=== PATIENT | male | born 1975 | race Caucasian/White ===

== ENCOUNTER 2023-04-09 13:14 | Emergency (ER) | payer OTHER, SELFPAY ==
[2023-04-09 13:24] VITALS: BP 147/99
--- NOTE | 2023-04-09 14:31 | ED.GENMED ---
History of Present Illness
General
Chief Complaint: Cold/Flu/URI Symptoms
Time Seen by Provider: 04/09/23 14:06
Travel History
Have you had any contact with someone who has COVID-19?: No
Do you have any symptoms of coronavirus? Fever > 100 degrees, chills, cough, shortness of breath, sore throat, loss of taste or smell, muscle aches, or headache?: No
History of Present Illness
History of Present Illness:
47-year-old male with history of tobacco use presents the emergency department for evaluation of general malaise and 'brain fog' ongoing for the past several days. He notes he was diagnosed with the flu approximately 1 week ago and treated with a
full course of Tamiflu. He states he was feeling improved however worsened again over the past 1 to 2 days. Was not able to complete work today due to symptoms. Denies any chest pain or shortness of breath currently
Past History
Past History
ED Past Medical History: None
ED Past Surgical History: None
Social History
Tobacco: Smoker
Review of Systems
Review of Systems
Allergies reviewed?: Yes
Phy Exam
Physical Exam
Physical Exam:
GEN: Well appearing, NAD, WDWN
HEENT: Oral mucosa moist, no scleral icterus
Cardiac: Regular rate and rhythm, no murmurs or rubs
Lung: No respiratory distress, no tachypnea, lungs clear to auscultation bilaterally
MSK: No gross deformity or injuries
Skin: Good color, no pallor or jaundice, no rashes
Neuro: AO x3, moves all extremities freely
Psych: Calm, cooperative
Course
Vital Signs
Initial and Last Documented VS:
Initial Vital Signs
Temp Pulse Resp BP Pulse Ox
97.6 F 92 16 147/99 98
04/09/23 13:24 04/09/23 13:24 04/09/23 13:24 04/09/23 13:24 04/09/23 13:24
Last Documented Vital Signs
Temp Pulse Resp BP Pulse Ox
97.6 F 90 16 138/84 98
04/09/23 13:24 04/09/23 14:45 04/09/23 14:45 04/09/23 14:45 04/09/23 14:45
MDM/Problems Addressed
MDM/Problems Addressed:
Patient's physical exam is benign. Vital signs are normal. He is reassured this is likely a continued viral syndrome, encouraged rest and hydration, no indication for imaging
*Critical Care Note
Total Time (30-74mins, 75-104mins- exclusive of procedures): Not Applicable
ED Attending Note
-
Portions of this chart may have been created with voice recognition software.� Occasional wrong word or��sound alike� substitutions may have occurred due to the inherent limitations of voice recognition software.
Discharge Plan
Departure
Patient Disposition: Home (Routine Discharge)
Date of Disposition: 04/09/23
Time of Disposition: 14:31
Patient with high blood pressure during this ER visit?: Yes
Discharge Problem:
Post viral syndrome
Instructions: Viral Syndrome (DC)
Prescriptions:
New
benzonatate 200 mg capsule
200 mg PO TID PRN (Reason: Cough) Qty: 20 0RF
No Action
fluticasone propionate [Flonase Allergy Relief] 50 mcg/actuation [place],Suspension
1 spray INTRANASAL DAILY PRN (Reason: seasonal allergies)
Medical [place]
.ASDIRECTED
Zyrtec
.ASDIRECTED
naproxen 500 mg tablet
500 mg PO BID Qty: 20 0RF
cephalexin 500 mg capsule
500 mg PO BID 7 Days Qty: 14 0RF
tamsulosin [Flomax] 0.4 mg capsule
0.4 mg PO DAILY Qty: 7 0RF
Interventions
Interventions:
ED- Fall Risk Assessment Last Done: 04/09/23 14:45
*ED COVID-19 Vaccine History Last Done: 04/09/23 13:24
*Nursing Disposition Last Done: 04/09/23 14:45
ED- Pulmonary Assessment Last Done: 04/09/23 14:45
Discharge Date and Time
Discharge Date/Time: 04/09/23 14:54
[2023-04-09 14:45] VITALS: BP 138/84
== END 2023-04-09 14:54 | disposition home or self-care (01) ==
LOC: EMR 13:14
PROVIDERS: EMERGENCY PHYSICIAN Student in an Organized Health Care Education/Training Program; FAMILY PHYSICIAN Nurse Practitioner Family
DX: B34.9 Viral infection, unspecified (principal); F17.200 Nicotine dependence, unspecified, uncomplicated
CPT/HCPCS: 99282

== ENCOUNTER 2023-11-24 20:15 | Emergency (ER) | payer SELFPAY ==
[2023-11-24 20:17] VITALS: BP 190/120
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
[2023-11-24 21:21] VITALS: BP 127/92
== END 2023-11-24 21:35 | disposition home or self-care (01) ==
LOC: EMR 20:15
PROVIDERS: EMERGENCY PHYSICIAN Emergency Medicine; FAMILY PHYSICIAN Physician Assistant
DX: S63.502A Unspecified sprain of left wrist, initial encounter (principal); W19.XXXA Unspecified fall, initial encounter; R03.0 Elevated blood-pressure reading, without diagnosis of hypertension; F17.200 Nicotine dependence, unspecified, uncomplicated
CPT/HCPCS: 99283; 73110

== ENCOUNTER 2023-12-16 16:21 | Emergency (ER) | payer SELFPAY ==
[2023-12-16] VITALS (8 sets, daily range): BP systolic 123–147; BP diastolic 79–99; BMI 25.5
--- NOTE | 2023-12-16 16:43 | ED.GENMED ---
History of Present Illness
<Luis F Dawkins PA-C - Last Filed: 12/18/23 14:22>
General
Chief Complaint: Crisis Evaluation
Time Seen by Provider: 12/16/23 16:27
History of Present Illness
History of Present Illness:
48-year-old male with history of depression presents to the emergency department for evaluation of suicidal ideation use and alcohol use. He states he has frequent depressive thoughts during this time of the year and self medicates with alcohol.
He states he has a plan to choke himself an extension cord. He states that at this time he does not feel the urge to act on those thoughts and contracts for safety in the emergency department. He is requesting to sign himself in for psychiatric
treatment as well as alcohol withdrawal management. His last alcoholic beverage was just prior to arrival. Denies any additional substance use issues. No visual or auditory hallucinations
Past History
<Luis F Dawkins PA-C - Last Filed: 12/18/23 14:22>
Past History
ED Past Medical History: None
ED Past Surgical History: None
Social History
Tobacco: Smoker
Review of Systems
<Luis F Dawkins PA-C - Last Filed: 12/18/23 14:22>
Review of Systems
Allergies reviewed?: Yes
All Other Systems: ROS reviewed and negative except as documented in HPI and ROS
Phy Exam
<Luis F Dawkins PA-C - Last Filed: 12/18/23 14:22>
Physical Exam
Physical Exam:
GEN: Well appearing, NAD, WDWN
HEENT: Oral mucosa moist, no scleral icterus
Cardiac: Regular rate and rhythm, no murmurs
Lung: No respiratory distress, no tachypnea
MSK: No gross deformity or injuries
Skin: Good color, no pallor or jaundice, no rashes
Neuro: AO x3, moves all extremities freely, no tremors
Psych: Calm, cooperative
Course
<Luis F Dawkins PA-C - Last Filed: 12/18/23 14:22>
Orders/Labs/Results
Orders:
Orders
12/16/23 16:40
Electrocardiogram (*1) Urgent
Reason for Study: QTc Monitoring
Crisis Consult Urgent
Reason for Consult: depression, SI, ETOH abuse
EKG- Treatment ONCE
12/16/23 16:41
ED Special Safety Observation ONCE
Observation level: Intermittent Observation
12/16/23 16:46
Alcohol Urgent
Complete Blood Count/With Diff Urgent
Comprehensive Metabolic Panel Urgent
Manual Differential Urgent
12/16/23 20:46
Urinalysis Reflex To Culture Urgent
Date Specimen was Collected: 12/16/23
Time Specimen was Collected: 20:43
Urine Drug Abuse Screen Urgent
Date Specimen was Collected: 12/16/23
Time Specimen was Collected: 20:43
Urine Microscopic Reflex Cult Urgent
12/16/23 21:00
0.9% Sodium Chloride 1000 ml [Nss] 1,000 ml Mvi, Adult [Multivitamin] 10 ml Thiamine Injection 100 mg IV 250 mls/hr
12/17/23 02:16
Alcohol Urgent
12/17/23 03:32
Lorazepam [Ativan] 1 mg .ROUTE .STK-MED ONE
12/17/23 03:35
Lorazepam [Ativan] 1 mg PO NOW STA
12/17/23 07:32
Lorazepam [Ativan] 1 mg PO NOW STA
12/17/23 08:00
Nicotine [Nicoderm Transdermal] 21 mg TRANSDERM DAILY
Abnormal Lab Results
12/16/23 12/16/23
16:46 20:46
MCV 94.2 H fL
(80.0-94.0)
MCH 34.3 H pg
(27.0-31.0)
RDW 15.9 H %
(11.5-14.5)
Carbon Dioxide 19 L mmol/L
(22-30)
BUN 8 L mg/dl
(9-20)
Creatinine 0.6 L mg/dL
(0.7-1.3)
AST 112 H U/L
(17-59)
ALT 100 H U/L
(0-50)
Albumin 5.5 H g/dl
(3.5-5.0)
Urine Ketones 3+ A
(Negative)
Ur Occult Blood Reflex 3+ A
(Negative)
Urine Bilirubin 1+ A
(Negative)
Urine Urobilinogen 3+ A
(Neg - 1+)
Leukocyte Esterase Rfl Trace A
(Negative)
Urine RBC 16-20 A /HPF
(0-2)
Urine Bacteria (Reflex) Few A
(Negative)
Urine Albumin (Reflex) 1+ A
(Neg - Trace)
U Marijuana (THC) Screen Positive H
(Negative)
12/16/23 16:46
12/16/23 16:46
Vital Signs
Initial and Last Documented VS:
Initial Vital Signs
Temp Pulse Resp BP Pulse Ox
98 F 92 16 146/99 97
12/16/23 16:26 12/16/23 16:26 12/16/23 16:26 12/16/23 16:26 12/16/23 16:26
Last Documented Vital Signs
Temp Pulse Resp BP Pulse Ox
99.1 F 99 16 140/94 99
12/17/23 03:15 12/17/23 04:15 12/17/23 04:15 12/17/23 04:15 12/17/23 04:15
<Darin King DO - Last Filed: 12/17/23 00:48>
Orders/Labs/Results
Orders:
Orders
12/16/23 16:40
Electrocardiogram (*1) Urgent
Reason for Study: QTc Monitoring
Crisis Consult Urgent
Reason for Consult: depression, SI, ETOH abuse
EKG- Treatment ONCE
12/16/23 16:41
ED Special Safety Observation ONCE
Observation level: Intermittent Observation
12/16/23 16:46
Alcohol Urgent
Complete Blood Count/With Diff Urgent
Comprehensive Metabolic Panel Urgent
Manual Differential Urgent
12/16/23 20:46
Urinalysis Reflex To Culture Urgent
Date Specimen was Collected: 12/16/23
Time Specimen was Collected: 20:43
Urine Drug Abuse Screen Urgent
Date Specimen was Collected: 12/16/23
Time Specimen was Collected: 20:43
Urine Microscopic Reflex Cult Urgent
12/16/23 21:00
0.9% Sodium Chloride 1000 ml [Nss] 1,000 ml Mvi, Adult [Multivitamin] 10 ml Thiamine Injection 100 mg IV 250 mls/hr
12/17/23 02:16
Alcohol Urgent
12/17/23 03:32
Lorazepam [Ativan] 1 mg .ROUTE .STK-MED ONE
12/17/23 03:35
Lorazepam [Ativan] 1 mg PO NOW STA
12/17/23 07:32
Lorazepam [Ativan] 1 mg PO NOW STA
12/17/23 08:00
Nicotine [Nicoderm Transdermal] 21 mg TRANSDERM DAILY
Abnormal Lab Results
12/16/23 12/16/23
16:46 20:46
MCV 94.2 H fL
(80.0-94.0)
MCH 34.3 H pg
(27.0-31.0)
RDW 15.9 H %
(11.5-14.5)
Carbon Dioxide 19 L mmol/L
(22-30)
BUN 8 L mg/dl
(9-20)
Creatinine 0.6 L mg/dL
(0.7-1.3)
AST 112 H U/L
(17-59)
ALT 100 H U/L
(0-50)
Albumin 5.5 H g/dl
(3.5-5.0)
Urine Ketones 3+ A
(Negative)
Ur Occult Blood Reflex 3+ A
(Negative)
Urine Bilirubin 1+ A
(Negative)
Urine Urobilinogen 3+ A
(Neg - 1+)
Leukocyte Esterase Rfl Trace A
(Negative)
Urine RBC 16-20 A /HPF
(0-2)
Urine Bacteria (Reflex) Few A
(Negative)
Urine Albumin (Reflex) 1+ A
(Neg - Trace)
U Marijuana (THC) Screen Positive H
(Negative)
12/16/23 16:46
12/16/23 16:46
Vital Signs
Initial and Last Documented VS:
Initial Vital Signs
Temp Pulse Resp BP Pulse Ox
98 F 92 16 146/99 97
12/16/23 16:26 12/16/23 16:26 12/16/23 16:26 12/16/23 16:26 12/16/23 16:26
Last Documented Vital Signs
Temp Pulse Resp BP Pulse Ox
99.1 F 99 16 140/94 99
12/17/23 03:15 12/17/23 04:15 12/17/23 04:15 12/17/23 04:15 12/17/23 04:15
<Luis F Dawkins PA-C - Last Filed: 12/18/23 14:22>
MDM/Problems Addressed
MDM/Problems Addressed:
Patient will remain in the emergency department for medical management and observation of potential withdrawal although he is markedly intoxicated at this time despite appearing clinically sober. Crisis will evaluate the patient upon sobriety to
determine most appropriate placement. At this time I do not feel the patient requires one-to-one observation as he contracts for safety in the emergency department. Will sign out to shift coordinator ED provider for further observation pending crisis
placement
<Luis F Dawkins PA-C - Last Filed: 12/18/23 14:22>
*Critical Care Note
Total Time (30-74mins, 75-104mins- exclusive of procedures): Not Applicable
<Darin King DO - Last Filed: 12/17/23 00:48>
Update Note
Update Note:
Patient reassessed again and continues to not have any suicidal thoughts or plan. Await B cares
ED Attending Note
<Luis F Dawkins PA-C - Last Filed: 12/18/23 14:22>
-
Portions of this chart may have been created with voice recognition software.� Occasional wrong word or��sound alike� substitutions may have occurred due to the inherent limitations of voice recognition software.
<DO Saturnino Clemons Last Filed: 12/17/23 00:48>
ED Attending Note
Patient seen and examined by attending physician: Yes
I performed the substantive portion of visit, reviewed & personally made and approve the management plan that is documented in note by myself or NABIL.: Yes
ED Attending Note:
48-year-old male presents with suicidal thoughts and chronic alcohol abuse. Patient assessed by me and awake and alert. Alcohol level noted. Now being seen by crisis. Continue close monitoring
Discharge Plan
Departure
Patient Disposition: Psych Facility
Date of Disposition: 12/16/23
Time of Disposition: 20:53
Discharge Problem:
Depression with suicidal ideation, Alcohol abuse
Prescriptions:
No Action
fluticasone propionate [Flonase Allergy Relief] 50 mcg/actuation [place],Suspension
1 spray INTRANASAL DAILY PRN (Reason: seasonal allergies)
Medical [place]
.ASDIRECTED
Zyrtec
.ASDIRECTED
naproxen 500 mg tablet
500 mg PO BID Qty: 20 0RF
cephalexin 500 mg capsule
500 mg PO BID 7 Days Qty: 14 0RF
tamsulosin [Flomax] 0.4 mg capsule
0.4 mg PO DAILY Qty: 7 0RF
benzonatate 200 mg capsule
200 mg PO TID PRN (Reason: Cough) Qty: 20 0RF
Referrals:
Sandoval Hickey MD [Family Provider] -
Interventions
Interventions:
*Risk Screen - Suicide Last Done: 12/16/23 16:23
*General Assessment Last Done: 12/16/23 16:47
*Neglect/Abuse Screening Last Done: 12/16/23 16:47
ED- Fall Risk Assessment Last Done: 12/16/23 17:29
*ED COVID-19 Vaccine History Last Done: 12/16/23 16:47
*Nursing Disposition Last Done: 12/17/23 10:26
ED-Psychological Assessment Last Done: 12/17/23 07:43
Discharge Date and Time
Discharge Date/Time: 12/17/23 10:20
Print Language: YEMENI
[2023-12-16 17:06] LABS: Hematocrit 46.7 % (39.0-52.0); Mean Corp Hgb Conc. 36.4 g/dL (33.0-37.0); Mean Corpuscular Hgb 34.3 pg (27.0-31.0); Mean Corpuscular Volume 94.2 fL (80.0-94.0); Mean Platelet Volume 9.2 fL (7.4-10.4); Platelet Count 193 10^3/uL (130-400); Red Blood Cell Count 4.96 10^6/uL (4.70-6.10); Red Cell Dist. Width 15.9 % (11.5-14.5); White Blood Cell Count 4.8 10^3/uL (4.8-10.8)
[2023-12-16 17:12] LABS: ALT (SGPT) 100 U/L (0-50); AST (SGOT) 112 U/L (17-59); Albumin 5.5 g/dl (3.5-5.0); Alkaline Phosphatase 86 U/L (38-126); Blood Urea Nitrogen 8 mg/dl (9-20); Calcium 9.9 mg/dl (8.4-10.2); Carbon Dioxide 19 mmol/L (22-30); Chloride 98 mmol/L (98-107); Estimated Creatinine Clearance > 125 ml/min; Glucose 99 mg/dl (70-99); Sodium 140 mmol/L (135-145); eGFR > 60.00
[2023-12-16 17:20] LABS: Alcohol 336 mg/dl
[2023-12-16 18:05] LABS: Atypical Lymphocytes 4 %; Lymphocytes 28 % (20-51); Monocytes 9 % (2-9); Platelets Checked Yes; Segmented Neutrophils 59 % (42-75)
[2023-12-16 18:06] LABS: Anisocytosis 2+; Macrocytosis 2+; Normal RBC Morphology No; Total Cells Counted 100
[2023-12-16] MEDS: MULTIVITAMIN 1011 MG IV (20:40)
[2023-12-16] MEDS: MULTIVITAMIN 1011 ML IV (20:40)
[2023-12-16 21:05] LABS: Amphetamines Negative (Negative); Barbiturates Negative (Negative); Benzodiazepines Negative (Negative); Buprenorphine Negative (Negative); Cocaine Negative (Negative); Marijuana Positive (Negative); Methadone Negative (Negative); Methamphetamines Negative (Negative); Opiates Negative (Negative); Phencyclidine Negative (Negative); Tricyclic Antidepressants Negative (Negative)
[2023-12-16 21:06] LABS: Urine Albumin 1+ (Neg - Trace); Urine Bilirubin 1+ (Negative); Urine Character Clear (Clear); Urine Color Yellow; Urine Glucose Negative (Negative); Urine Ketone 3+ (Negative); Urine Leukocyte Trace (Negative); Urine Nitrite Negative (Negative); Urine Occult Blood 3+ (Negative); Urine Specific Gravity 1.025 (<1.030); Urine Urobilinogen 3+ (Neg - 1+)
[2023-12-16 21:33] LABS: Urine Mucus Many
[2023-12-16 21:36] LABS: Urine Bacteria Few (Negative); Urine Red Blood Cell 16-20 /HPF (0-2)
[2023-12-17] VITALS: BP 142/91
[2023-12-17 02:12] VITALS: BP 158/94
[2023-12-17 02:59] LABS: Alcohol 116 mg/dl
[2023-12-17 03:00] VITALS: BP 166/100
[2023-12-17 03:15] VITALS: BP 147/95
[2023-12-17] MEDS: ATIVAN 1 MG PO ×2 (03:36→07:44)
[2023-12-17 04:15] VITALS: BP 140/94
[2023-12-17] MEDS: NICODERM TRANSDERMAL 21 MG TRANSDERM (07:53)
--- NOTE | 2023-12-17 10:26 | EDRN ---
Report given to [facility].
== END 2023-12-17 10:20 ==
LOC: EMR 16:21
PROVIDERS: Physician Assistant; EMERGENCY PHYSICIAN Emergency Medicine; FAMILY PHYSICIAN Family Medicine
DX: F32.A Depression, unspecified (principal); R45.851 Suicidal ideations; F10.10 Alcohol abuse, uncomplicated; F17.200 Nicotine dependence, unspecified, uncomplicated
CPT/HCPCS: 99283; 80053; 80306; 81003; 81015; 82077; 85025; 93005

== ENCOUNTER 2024-01-09 01:01 | Emergency (ER) | payer SELFPAY ==
[2024-01-09 01:04] VITALS: BP 113/89
[2024-01-09 01:26] VITALS: BP 123/87
--- NOTE | 2024-01-09 01:58 | ED.GENMED ---
History of Present Illness
<Alba Zuniga MD, Resident - Last Filed: 01/09/24 03:13>
General
Chief Complaint: Nose Bleed
Source: patient
Exam Limitations: none
Time Seen by Provider: 01/09/24 01:40
Nursing documentation reviewed up to this point in time: agreed with
Travel History
Have you traveled to any high risk areas for coronavirus over the past 14 days?: No
Have you had any contact with someone who has COVID-19?: No
Do you have any symptoms of coronavirus? Fever > 100 degrees, chills, cough, shortness of breath, sore throat, loss of taste or smell, muscle aches, or headache?: No
History of Present Illness
History of Present Illness:
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 He had similar allergies this year that exacerbated his dryness of the nostril
and patient started having intermittent nasal bleeds from Thursday. He decided to go to his primary care physician as of Thursday but his bleeding completely stopped on Thursday so patient did not go due to his insurance difficulties. He started
bleeding through his nose again on Thursday-Thursday, Thursday, yesterday his bleeding was intermittent, however over the last 2 hours his bleeding through his left nostril is continuous. Patient stated that he does not use any inhalational
recreational drugs, he smokes medical marijuana and he smokes 1 and half packs of cigarettes a day. His last inhalational cocaine was more than 20 years ago. He denies having any relapses in the last 6 years other than this episode. His nasal
bleed was accompanied by dizziness and lightheadedness in the evening today.
He denies having fevers, chills, high blood pressure, shortness of breath on exertion, orthopnea, PND.
If applicable-neuro sx onset
Onset of symptoms known: No
Time pt last seen normal is known: No
Past History
<Alba Zuniga MD, Resident - Last Filed: 01/09/24 03:13>
Past History
ED Past Medical History: None
ED Past Surgical History: None
Social History
Tobacco: Smoker
Alcohol: Occasional
Drug: None
Personal: Single
Living: alone
Employment: Employed
Family History
Family History: Other
Review of Systems
<Alba Zuniga MD, Resident - Last Filed: 01/09/24 03:13>
Review of Systems
Allergies reviewed?: Yes
All Other Systems: ROS reviewed and negative except as documented in HPI and ROS
EENT: Reports other (Nasal bleed.)
Phy Exam
<Alba Zuniga MD, Resident - Last Filed: 01/09/24 03:13>
General Physical Exam
General Presentation: well appearing and no apparent distress
General Skin: warm
General Habitus: normal
General Mental: alert
ENT Exam
ENT Exam: EOMI, TM's normal, pharynx normal and normocephalic
Additional ENT: Blood clots seen in the oropharynx.
Cardiovascular Exam
Cardiovascular Exam: regular rate/rhythm, no edema, no gallop, no murmur and normal peripheral pulses
Heart Sounds: normal
Pulmonary Exam
Pulmonary Exam: lungs clear, no respiratory distress, no rales, no crackles and no rhonchi
Gastrointestinal Exam
Gastrointestinal Exam: normal bowel sounds, non tender, soft, no pulsatile mass and non distended
Neurological Exam
Neurological Exam: alert, no motor deficits and no sensory deficits
Skin Exam
Skin Exam: normal color
Course
<Alba Zuniga MD, Resident - Last Filed: 01/09/24 03:13>
Vital Signs
Initial and Last Documented VS:
Initial Vital Signs
Temp Pulse Resp BP Pulse Ox
97.5 F 130 18 113/89 96
01/09/24 01:04 01/09/24 01:04 01/09/24 01:04 01/09/24 01:04 01/09/24 01:04
Last Documented Vital Signs
Temp Pulse Resp BP Pulse Ox
97.5 F 111 19 135/92 99
01/09/24 01:04 01/09/24 02:08 01/09/24 02:08 01/09/24 02:00 01/09/24 02:00
<Nader Almanza DO - Last Filed: 01/09/24 02:59>
Vital Signs
Initial and Last Documented VS:
Initial Vital Signs
Temp Pulse Resp BP Pulse Ox
97.5 F 130 18 113/89 96
01/09/24 01:04 01/09/24 01:04 01/09/24 01:04 01/09/24 01:04 01/09/24 01:04
Last Documented Vital Signs
Temp Pulse Resp BP Pulse Ox
97.5 F 111 19 135/92 99
01/09/24 01:04 01/09/24 02:08 01/09/24 02:08 01/09/24 02:00 01/09/24 02:00
Procedures
<Nader Almanza DO - Last Filed: 01/09/24 02:59>
Nosebleed
Drug treatment: Lidocaine and Epinephrine
Treatment: Silver nitrate cautery
Post treatment bleeding: none- good control
<Alba Zuniga MD, Resident - Last Filed: 01/09/24 03:13>
MDM/Problems Addressed
Differential Diagnosis Includes:
Anterior versus posterior nasal bleed
MDM/Problems Addressed:
. Anterior nasal bleed addressed with cautery.
<Alba Zuniga MD, Resident - Last Filed: 01/09/24 03:13>
*Critical Care Note
Total Time (30-74mins, 75-104mins- exclusive of procedures): Not Applicable
<Alba Zuniga MD, Resident - Last Filed: 01/09/24 03:13>
Update Note
Update Note:
30 minutes after silver nitrate application-no nasal bleeding noted..
ED Attending Note
<Alba Zuniga MD, Resident - Last Filed: 01/09/24 03:13>
-
Portions of this chart may have been created with voice recognition software.� Occasional wrong word or��sound alike� substitutions may have occurred due to the inherent limitations of voice recognition software.
<Nader Almanza, DO - Last Filed: 01/09/24 02:59>
ED Attending Note
Patient seen and examined by attending physician: Yes
I performed a history and physical exam of patient and discussed management with resident, I reviewed resident's note and agree with documented findings and plan of care.: Yes
ED Attending Note:
seen with resident, agree with ap, recurrent left-sided epistaxis, history of the same, will try silver nitrate cautery
Discharge Plan
Departure
Patient Disposition: Home (Routine Discharge)
Date of Disposition: 01/09/24
Time of Disposition: 02:57
Patient with high blood pressure during this ER visit?: No
Condition: Good
Covid-19: Not Applicable
Discharge Problem:
Nasal bleeding
Instructions: Nosebleeds (DC)
Prescriptions:
No Action
fluticasone propionate [Flonase Allergy Relief] 50 mcg/actuation [employer] [place],Suspension
1 spray INTRANASAL DAILY PRN (Reason: seasonal allergies)
Medical Maijbrandta
.ASDIRECTED
Zyrtec
.ASDIRECTED
naproxen 500 mg tablet
500 mg PO BID Qty: 20 0RF
cephalexin 500 mg capsule
500 mg PO BID 7 Days Qty: 14 0RF
tamsulosin [Flomax] 0.4 mg capsule
0.4 mg PO DAILY Qty: 7 0RF
benzonatate 200 mg capsule
200 mg PO TID PRN (Reason: Cough) Qty: 20 0RF
Referrals:
Brian Kemp MD [Active] - Next open appointment
NONE,* [Family Provider] -
Interventions
Interventions:
*Risk Screen - Suicide Last Done: 01/09/24 01:04
*General Assessment Last Done: 01/09/24 01:04
*Neglect/Abuse Screening Last Done: 01/09/24 01:04
ED- Fall Risk Assessment Last Done: 01/09/24 01:04
*ED COVID-19 Vaccine History Last Done: 01/09/24 01:04
ED-EENT Assessment Last Done: 01/09/24 01:29
Discharge Date and Time
Print Language: KOSOVAN
[2024-01-09 02:00] VITALS: BP 135/92
[2024-01-09 03:00] VITALS: BP 136/95
== END 2024-01-09 03:18 | disposition home or self-care (01) ==
LOC: EMR 01:01
PROVIDERS: EMERGENCY PHYSICIAN Emergency Medicine
DX: R04.0 Epistaxis (principal); F17.200 Nicotine dependence, unspecified, uncomplicated
CPT/HCPCS: 99282; 30901